=== PATIENT | male | born 1940 | race American Indian/Alaskan Native ===

== ENCOUNTER 2016-07-29 06:47 | Emergency (ER) | payer OTHER ==
[2016-07-29 08:09] LABS: Basophils % (Auto) 0.9 % (0.0-1.8); Eosinophils % (Auto) 1.6 % (0.0-4.3); Hemoglobin 11.1 gm/dl (11.8-15.2); Mean Corpuscular HGB Conc 34 % (32-34); Mean Corpuscular Hemoglobin 31 pg (28-32); Mean Corpuscular Volume 93 fl (84-94); Platelet Count 153 K/mm3 (140-440); Red Blood Count 3.55 M/mm3 (3.65-5.03); Red Cell Distribution Width 14.6 % (13.2-15.2); White Blood Count 10.8 K/mm3 (4.5-11.0)
[2016-07-29 08:16] LABS: BUN/Creatinine Ratio 18.42; Calcium 8.8 mg/dL (8.4-10.2); Chloride 121.1 mmol/L (98-107); Potassium 4.3 mmol/L (3.6-5.0)
[2016-07-29 08:19] LABS: INR 1.51 (0.87-1.13)
[2016-07-29 08:20] LABS: Partial Thromboplastin Time 29.4 Sec. (24.2-36.6)
[2016-07-29] MEDS ORDERED: NACL 0.9% 1000 ML 1,000 ML IV ONE (10:36)
--- NOTE | 2016-07-29 10:36 | Emergency Department Report ---
ED General Adult HPI - General Chief complaint: Urogenital-Male Stated complaint: CATHETER REMOVED/BLEEDING Time Seen by Provider: 07/29/16 10:35 Source: patient, family, EMS Mode of arrival: Stretcher Limitations: No Limitations - History of Present Illness Initial comments: Patient apparently had a cardiac catheterization approximately 5 days ago. They left an indwelling catheter. He had an appointment to see Dr. Up a urologist at [facility] for possible Hoffman removal. However, today he self extracted the catheter. I do not have the catheter 2 inspect. However he had urethral bleeding thereafter I was transported to this emergency department for further evaluation. Patient does not complain of pain. He does have blood at his urethra but not active bleeding. He has really no specific complaint at this time. A retrograde urethrogram under fluoroscopy was performed. -: Sudden - Related Data Home Medications Medication Instructions Recorded Confirmed Last Taken Aspirin EC [Aspirin Enteric Coated 81 mg PO QDAY 07/29/16 07/29/16 Unknown TAB] AtorvaSTATin [Lipitor] 80 mg PO DAILY 07/29/16 07/29/16 Unknown Clopidogrel [Plavix] 75 mg PO QDAY 07/29/16 07/29/16 Unknown Losartan [Cozaar] 100 mg PO QDAY 07/29/16 07/29/16 Unknown Nitroglycerin [Nitrostat] 0.4 mg SL Q5M PRN 07/29/16 07/29/16 Unknown Spironolactone [Aldactone] 25 mg PO BID 07/29/16 07/29/16 Unknown Tamsulosin [Flomax] 0.4 mg PO QDAY 07/29/16 07/29/16 Unknown Allergies Allergy/AdvReac Type Severity Reaction Status Date / Time No Known Allergies Allergy Verified 07/29/16 07:44 ED Review of Systems ROS: Stated complaint: CATHETER REMOVED/BLEEDING Other details as noted in HPI Comment: Unobtainable due to pts medical conditions (Limited secondary to dementia) ED Past Medical Hx - Past Medical History Hx Heart Attack/AMI: Yes - Social History Substance Use Type: None - Medications Home Medications: Home Medications Medication Instructions Recorded Confirmed Last Taken Type Aspirin EC [Aspirin Enteric Coated 81 mg PO QDAY 07/29/16 07/29/16 Unknown History TAB] AtorvaSTATin [Lipitor] 80 mg PO DAILY 07/29/16 07/29/16 Unknown History Clopidogrel [Plavix] 75 mg PO QDAY 07/29/16 07/29/16 Unknown History Losartan [Cozaar] 100 mg PO QDAY 07/29/16 07/29/16 Unknown History Nitroglycerin [Nitrostat] 0.4 mg SL Q5M PRN 07/29/16 07/29/16 Unknown History Spironolactone [Aldactone] 25 mg PO BID 07/29/16 07/29/16 Unknown History Tamsulosin [Flomax] 0.4 mg PO QDAY 07/29/16 07/29/16 Unknown History ED Physical Exam - General Limitations: No Limitations General appearance: alert, in no apparent distress - Head Head exam: Present: atraumatic, normocephalic - Eye Eye exam: Present: normal appearance, PERRL, EOMI. Absent: scleral icterus - ENT ENT exam: Present: mucous membranes moist - Neck Neck exam: Present: normal inspection - Respiratory Respiratory exam: Present: normal lung sounds bilaterally. Absent: respiratory distress - Cardiovascular Cardiovascular Exam: Present: regular rate, normal rhythm. Absent: systolic murmur, diastolic murmur, rubs, gallop - GI/Abdominal GI/Abdominal exam: Present: soft, normal bowel sounds. Absent: distended, tenderness, guarding, rebound, rigid - Rectal Rectal exam: Present: deferred - exam: Absent: normal inspection (blood at the urethra noted uncircumcised male) - Extremities Exam Extremities exam: Present: normal inspection - Back Exam Back exam: Present: normal inspection - Neurological Exam Neurological exam: Present: alert, oriented X3 - Psychiatric Psychiatric exam: Present: normal affect, normal mood - Skin Skin exam: Present: warm, dry, intact, normal color. Absent: rash ED Course Vital Signs 07/29/16 07/29/16 07/29/16 07:14 07:17 10:50 Temperature 97.9 F 97.9 F Pulse Rate 60 65 71 Respiratory 18 17 Rate Blood Pressure 117/59 Blood Pressure 130/84 147/87 [Left] O2 Sat by Pulse 96 99 99 Oximetry 07/29/16 12:57 Temperature Pulse Rate 75 Respiratory 22 Rate Blood Pressure Blood Pressure 138/91 [Left] O2 Sat by Pulse 98 Oximetry - Reevaluation(s) Reevaluation #1: We do not have neurology coverage. Transfer pending to [facility]. Patient had an appointment pending with them as well. 07/29/16 14:20 Reevaluation #2: Discussed with Chris. The patient will be sent to the [facility] emergency department for evaluation by the urologist Dr. Wolf. 07/29/16 14:37 07/29/16 14:38 ED Medical Decision Making - Lab Data Result diagrams: 07/29/16 07:51 07/29/16 07:51 Laboratory Results - last 24 hr 07/29/16 07/29/16 07/29/16 07:51 07:51 07:51 WBC 10.8 RBC 3.55 L Hgb 11.1 L Hct 33.0 L MCV 93 MCH 31 MCHC 34 RDW 14.6 Plt Count 153 Lymph % (Auto) 3.6 L Grant % (Auto) 8.8 H Eos % (Auto) 1.6 Baso % (Auto) 0.9 Lymph # 0.4 L Grant # 1.0 H Eos # 0.2 Baso # 0.1 Seg Neutrophils % 85.1 H Seg Neutrophils # 9.2 H PT 18.2 H INR 1.51 H APTT 29.4 Sodium 154 H Potassium 4.3 Chloride 121.1 H Carbon Dioxide 22 Anion Gap 15 BUN 35 H Creatinine 1.9 H Estimated GFR 42 BUN/Creatinine Ratio 18.42 Glucose 117 H Calcium 8.8 - Radiology Data Radiology results: report reviewed interpreted by me: Retrograde urethrogram showed the presence of a "urethral mass. I suspect this may be retained catheter. Critical care attestation.: If time is entered above; I have spent that time in minutes in the direct care of this critically ill patient, excluding procedure time. ED Disposition Clinical Impression: Gross hematuria Urethral foreign body Qualifiers: Encounter type: initial encounter Qualified Code(s): T19.0XXA - Foreign body in urethra, initial encounter Urethral injury Qualifiers: Encounter type: initial encounter Qualified Code(s): S37.30XA - Unspecified injury of urethra, initial encounter Disposition: DC/TX ANOTHER TYPE HEALTHCARE Is pt being admited?: No Does the pt Need Aspirin: No Condition: Stable Instructions: Acute Hematuria (ED) Additional Instructions: Be seen by Dr. Wolf, the urologist at the [facility] emergency Department for further care and evaluation. Referrals: PRIMARY CARE, [Primary Care Provider] - 3-5 Days Time of Disposition: 14:39
--- NOTE | 2016-07-29 11:04 | XRay Report ---
Portable chest: Hypertension. The patient is rotated to the left. The heart is probably normal in size and contour despite the rotation. Mediastinal contour the also is grossly normal. There is no obvious hilar enlargement. The lungs are clear of any infiltrate or nodule. There is a slightly prominent overall interstitial pattern. The bones and soft tissues are grossly normal. I have no prior study for comparison. Impression: Somewhat compromised exam due to rotation. Question mild interstitial disease.
--- NOTE | 2016-07-29 12:53 | Fluoroscopy Report ---
Retrograde urethrogram: History: Penile hemorrhage. The meatus was cleansed with Betadine. An 8 Macedonian catheter was placed and secured with an air-filled balloon. Injection of contrast demonstrated a mass obstructing the anterior urethra. No contrast passed distal to the mass. Impression: Urethral mass.
[2016-07-29 15:33] VITALS: BP 147/88
== END 2016-07-29 15:55 | disposition other institution (70) ==
LOC: ED 06:47
DX: T19.0XXA Foreign body in urethra, initial encounter (principal); S37.30XA Unspecified injury of urethra, initial encounter; R31.0 Gross hematuria; X58.XXXA Exposure to other specified factors, initial encounter; Y93.9 Activity, unspecified; Y92.9 Unspecified place or not applicable; Y99.9 Unspecified external cause status; I25.2 Old myocardial infarction
CPT/HCPCS: 36415; 51610; 71010; 74450; 80048; 85025; 85610; 85730; 96360; 96375; 99285; J7030; Q9967